=== PATIENT | male | born 1995 | race Caucasian/White ===

== ENCOUNTER 2018-11-22 03:43 | Emergency (ER) | payer BC ==
[~2018-11-22] VITALS: Ht 180.3 cm; Wt 97.7 kg
[2018-11-22 03:46] VITALS: BP 155/90; TEMP 98
[2018-11-22] MEDS ORDERED: CLEOCIN HCL300 MG PO (03:54)
[2018-11-22 04:39] VITALS: PULSE 75
== END 2018-11-22 04:39 | disposition home or self-care (01) ==
LOC: COL.ER 03:43
DX: J36 Peritonsillar abscess (principal)
CPT/HCPCS: J7512